=== PATIENT | female | born 1950 | race Caucasian/White ===

== ENCOUNTER → 2017-08-30 15:18 | Outpatient (CLI) | payer MEDICARE | END | disposition home or self-care (01) | LOC: D.CT 15:18 | DX: R10.9 Unspecified abdominal pain (principal) ==

== ENCOUNTER 2018-08-12 15:10 | Observation (INO) | payer OTHER ==
[~2018-08-12] VITALS: Ht 165.1 cm; Wt 56.8 kg
[2018-08-12] MEDS ORDERED: CIPRO500 MG PO (15:50)
[2018-08-12] MEDS ORDERED: KLONOPIN1 MG PO (15:51)
[2018-08-12] MEDS ORDERED: HYDROCODON-ACE1 EAC7 PO (15:51)
[2018-08-12] MEDS ORDERED: ULTRAM50 MG PO (15:51)
[2018-08-12] MEDS ORDERED: ZANAFLEX4 MG PO (15:52)
[2018-08-12] MEDS ORDERED: ESTRACE 0.5 MG0.5 MG PO (15:53)
[2018-08-12 15:54] VITALS: BP 138/78; Ht 165.1 cm; Wt 56.8 kg
[2018-08-12 16:10] LABS: BASOPHILS 0.3 % (0-2); EOSINOPHILS 0.5 % (0-7); HEMOGLOBIN 13.3 g/dL (12-16); IMMATURE GRANULOCYTES 0.1 % (0-5); LYMPHOCYTES 29.4 % (15-50); MCH 30.4 pg (26.0-34.0); MCV 86.8 fL (80.0-100.0); MEAN PLATELET VOLUME 10.2 fL (7.4-10.4); MONOCYTES 5.2 % (2-11); NEUTROPHILS 64.5 % (40-80); PLATELET COUNT 198 10x3/uL (130-400); RBC 4.38 10x6/uL (4.00-5.40); RDW 12.9 % (11.5-14.5); WBC 7.6 10x3/uL (4.8-10.8)
[2018-08-12 16:43] LABS: ALBUMIN 4.1 g/dL (3.4-5.0); ANION GAP 14.9 mmol/L (8-16); BILIRUBIN - TOTAL 0.3 mg/dL (0.2-1.3); CARBON DIOXIDE 24.8 mmol/L (21.0-32.0); CREATININE - SERUM 0.9 mg/dL (0.6-1.3); POTASSIUM - SERUM 3.7 mmol/L (3.5-5.1); PROTEIN - SERUM 7.3 g/dL (6.4-8.2)
[2018-08-12 16:57] LABS: CALCIUM 9.7 mg/dL (8.5-10.1)
[2018-08-12 17:33] VITALS: BP 152/74
[2018-08-12 20:00] VITALS: BP 97/42
--- NOTE | 2018-08-12 23:15 | NUR ---
rec'd chge of shift.in bed family at bedside.denies nausea abd.flat with some tenderness mid abd to touch.hypoactive bowel sounds all quad.will continue to monitor for any chges and follow current plan of care.
--- NOTE | 2018-08-13 03:39 | NUR ---
I have reviewed this patient and I concur with the Shift Assessment completed by the Licensed Practical Nurse today this shift.
[2018-08-13 05:40] LABS: BASOPHILS 0.2 % (0-2); EOSINOPHILS 1.7 % (0-7); HEMATOCRIT 35.2 % (36.0-48.0); HEMOGLOBIN 11.8 g/dL (12-16); MCH 29.4 pg (26.0-34.0); MCHC 33.5 g/dL (31.0-37.0); MCV 87.6 fL (80.0-100.0); MEAN PLATELET VOLUME 10.3 fL (7.4-10.4); MONOCYTES 9.9 % (2-11); NEUTROPHILS 43.2 % (40-80); PLATELET COUNT 192 10x3/uL (130-400); RBC 4.02 10x6/uL (4.00-5.40); RDW 12.9 % (11.5-14.5)
[2018-08-13 05:53] LABS: WBC 4.7 10x3/uL (4.8-10.8)
[2018-08-13 05:54] LABS: CALCIUM 8.6 mg/dL (8.5-10.1); CARBON DIOXIDE 25.4 mmol/L (21.0-32.0); CREATININE - SERUM 0.9 mg/dL (0.6-1.3); POTASSIUM - SERUM 3.4 mmol/L (3.5-5.1)
[2018-08-13 06:33] VITALS: BP 117/57
[2018-08-13 08:14] VITALS: BP 113/52
[2018-08-13 14:49] LABS: APPEARANCE CLEAR (CLEAR); BILIRUBIN NEGATIVE (NEGATIVE); COLOR YELLOW (YELLOW); GLUCOSE NEGATIVE (NEGATIVE); KETONE NEGATIVE (NEGATIVE); NITRITE NEGATIVE (NEGATIVE); PROTEIN NEGATIVE (NEGATIVE); UROBILINOGEN NORMAL (NORMAL)
[2018-08-13 17:00] VITALS: BP 124/55
--- NOTE | 2018-08-13 18:58 | NUR ---
PT DISCHARGE INSTRUCTIONS REVIEWED. PT STATES UNDERSTANDING. PT DISCHARGING HOME WITH FAMILY. ESCORTED OUT BY HOSPITAL STAFF.
--- NOTE | 2018-08-15 17:05 | MORECARE ---
CASE MANAGEMENT DISCHARGE SUMMARY PATIENT: KAREEN SHIPMAN UNIT: [id number] ADM DATE: 08/12/18 AGE: 68 : 50 SEX: F ROOM/BED: D.2223 AUTHOR: JONO OLSEN PHYSICIAN: REFERRING PHYSICIAN: JAYSON WILSON MD DATE OF SERVICE: 08/15/18 Discharge Plan Patient Name: KARE[facility] SHIPMAN [facility] [facility] 1950 Planned Disposition: Anticipated Discharge Date: Discharge Date: 08/13/2018 Expected LOS: 0 Initial Reviewer: [email or web address] Initial Review Date: 08/15/2018 Generated: 08/15/18 6:05 pm Patient Name: KAREEN SHIPMAN Page [id number] at 1705 All edits/amendments must be made on the electronic document DICTATION DATE: 08/15/181703 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
== END 2018-08-13 18:58 | disposition home or self-care (01) ==
LOC: D.MS 15:10 → OBSVTIME 15:13 → D.MS 08-13 18:58
PROVIDERS: Internal Medicine Nephrology; ADMIT Family Medicine; ATTEND Family Medicine
DX: M51.37 Other intervertebral disc degeneration, lumbosacral region (principal); F41.9 Anxiety disorder, unspecified

== ENCOUNTER → 2019-04-29 10:02 | Outpatient (CLI) | payer OTHER ==
[2018-08-12 15:54] VITALS: BMI 20.8
[~2019-04-29 10:02] MED LIST: CIPRO500 MG PO; ESTRACE 0.5 MG0.5 MG PO; HYDROCODON-ACE1 EAC7 PO; KLONOPIN1 MG PO; ULTRAM50 MG PO; ZANAFLEX4 MG PO
== END | disposition home or self-care (01) ==
LOC: D.US 03-28 08:00
PROVIDERS: ATTEND Family Medicine
DX: R22.1 Localized swelling, mass and lump, neck (principal)